=== PATIENT | female | born 1950 | race Caucasian/White ===

== ENCOUNTER 2022-02-10 10:10 | Outpatient (CLI) | payer MEDICARE, SELFPAY ==
[2022-02-10 13:02] LABS: Albumin* 4.6 g/dL (3.3-5.0); Chloride* 93 mmol/L (96-114); Potassium* 3.8 mmol/L (3.6-5.1); Sodium* 134 mmol/L (135-149)
[2022-02-10 13:04] LABS: Bilirubin Total* 0.6 mg/dL (0.1-1.5); Carbon Dioxide* 33 mmol/L (20-32); Creatinine* 0.8 mg/dL (0.5-1.5); Estimated Glomerular Filt Rate 80 ml/min
[2022-02-10 13:05] LABS: Alanine Aminotransferase* 23 U/L (4-35); Alkaline Phosphatase* 59 U/L (40-150); Aspartate Amino Transferase* 40 U/L (12-35); Blood Urea Nitrogen* 12 mg/dL (7-30); Calcium* 9.5 mg/dL (8.4-10.6); Glucose* 128 mg/dL (60-115); Total Protein* 7.8 g/dL (6.0-8.3)
== END 2022-02-10 10:11 | disposition home or self-care (01) ==
PROVIDERS: PCP Family Medicine; Visit Provider Family Medicine
DX: K76.0 Fatty (change of) liver, not elsewhere classified (principal)
CPT/HCPCS: 80053

== ENCOUNTER 2022-03-14 10:12 | Outpatient (CLI) | payer MEDICARE, SELFPAY ==
[2022-03-14 14:16] LABS: Glucose* 109 mg/dL (60-115)
== END 2022-03-14 10:13 | disposition home or self-care (01) ==
PROVIDERS: PCP Family Medicine; Visit Provider Family Medicine
DX: Z13.1 Encounter for screening for diabetes mellitus (principal)
CPT/HCPCS: 82947

== ENCOUNTER 2023-03-01 09:19 | Outpatient (CLI) | payer MEDICARE, SELFPAY | END 2023-03-01 09:20 | disposition home or self-care (01) | PROVIDERS: PCP Family Medicine; Visit Provider Family Medicine | DX: Z00.00 Encounter for general adult medical examination without abnormal findings (principal); E78.5 Hyperlipidemia, unspecified; I10 Essential (primary) hypertension; E87.6 Hypokalemia; K76.0 Fatty (change of) liver, not elsewhere classified; R63.4 Abnormal weight loss; Z13.29 Encounter for screening for other suspected endocrine disorder | CPT/HCPCS: 80048; 82607; 84443 ==

== ENCOUNTER 2024-03-04 10:04 | Outpatient (CLI) | payer MEDICARE, SELFPAY | END 2024-03-04 10:05 | disposition home or self-care (01) | PROVIDERS: PCP Family Medicine; Visit Provider Family Medicine | DX: Z00.00 Encounter for general adult medical examination without abnormal findings (principal); I10 Essential (primary) hypertension; E78.00 Pure hypercholesterolemia, unspecified | CPT/HCPCS: 80048; 80061 ==

== ENCOUNTER 2025-03-23 13:48 | Outpatient (CLI) | payer MEDICARE, SELFPAY | END 2025-03-23 13:49 | disposition home or self-care (01) | PROVIDERS: PCP Family Medicine; Visit Provider Family Medicine | DX: I10 Essential (primary) hypertension (principal); E78.00 Pure hypercholesterolemia, unspecified | CPT/HCPCS: 80048; 80061 ==